=== PATIENT | male | born 1970 | race Asian ===

== ENCOUNTER 2024-08-13 21:48 | Inpatient (IN) | payer MEDICARE ==
[~2024-08-13] VITALS: Ht 165.1 cm; Wt 67.3 kg
[2024-08-13 22:23] LABS: BASOPHILS # (AUTO) 0.1 X10'3 (0-0.2); BASOPHILS % (AUTO) 0.8 % (0-1); EOSINOPHILS % (AUTO) 0.3 % (0-6); HEMOGLOBIN 15.7 g/dl (14.0-17.9); LYMPHOCYTES # (AUTO) 0.9 X10'3 (1.1-4.8); LYMPHOCYTES % (AUTO) 7.2 % (21-51); MEAN CORPUSCULAR HEMOGLOBIN 29.9 PG (27.0-31.0); MEAN CORPUSCULAR HGB CONC 33.4 g/dL (33.0-36.5); MEAN CORPUSCULAR VOLUME 89.4 FL (78-98); MEAN PLATELET VOLUME 9.5 FL (7.4-10.4); MONOCYTES # (AUTO) 0.8 X10'3 (0-0.9); MONOCYTES % (AUTO) 6.5 % (2-12); NEUTROPHILS # (AUTO) 10.9 X10'3 (1.8-7.7); NEUTROPHILS % (AUTO) 85.2 % (42-75); PLATELET COUNT 112 X10'3 (140-440); RED BLOOD COUNT 5.26 X10'6 (4.70-6.10); RED CELL DISTRIBUTION WIDTH 15.1 % (11.5-14.5); WHITE BLOOD COUNT 12.7 X10'3 (4.5-11.0)
[2024-08-13] MEDS ORDERED: ATOR-429 PO (22:33)
[2024-08-13] MEDS ORDERED: CLOP75TA34 PO (22:33)
[2024-08-13] MEDS ORDERED: FURO40TA4 PO (22:33)
[2024-08-13] MEDS ORDERED: METF-438 PO (22:33)
[2024-08-13] MEDS ORDERED: FENO145T38 PO (22:33)
[2024-08-13] MEDS ORDERED: ACET-3414 (22:33)
[2024-08-13] MEDS ORDERED: ASPI-1265 PO (22:33)
[2024-08-13] MEDS ORDERED: CARV6.252 PO (22:33)
[2024-08-13] MEDS ORDERED: POTA15TA18 PO (22:33)
[2024-08-13] MEDS ORDERED: ONDA-245 PO (22:33)
[2024-08-13] MEDS ORDERED: EMPA10TA PO (22:33)
[2024-08-13 22:40] LABS: ALANINE AMINOTRANSFERASE 30 U/L (12-78); ALBUMIN 3.2 G/DL (3.4-5.0); ALBUMIN/GLOBULIN RATIO 0.7 (1.1-1.5); ALKALINE PHOSPHATASE 198 IU/L (46-116); ANION GAP 7 (8-16); ASPARTATE AMINO TRANSFERASE 31 U/L (10-37); BILIRUBIN,TOTAL 1.7 MG/DL (0.1-1.0); BLOOD UREA NITROGEN 48 MG/DL (7-18); BUN/CREATININE RATIO 26.8 (10.0-20.0); CALCIUM 9.1 MG/DL (8.5-10.1); CHLORIDE 101 MMOL/L (99-107); CREATININE 1.79 MG/DL (0.60-1.10); GLUCOSE 167 MG/DL (70-104); SODIUM 137 MMOL/L (135-145); TOTAL CARBON DIOXIDE 29.2 MMOL/L (24-32); TOTAL PROTEIN 7.6 G/DL (6.4-8.2); eCRCL 40 ML/MIN; eGFR 39 ML/MIN
[2024-08-13 22:48] LABS: PRO BRAIN NATRIURETIC PEPTIDE 11731 PG/ML (0-125)
[2024-08-14] VITALS (8 sets, daily range): BP systolic 119–142; BP diastolic 70–97; PULSE 74–89; RESP 14–23; TEMP 97.5–98.1; O2SAT 96–99
[2024-08-14] MEDS: furosemide 40mg/4ml inj IV ONE (00:18)
[2024-08-14] MEDS ORDERED: potassium Cl 20 mEq SR tablet PO PRN (00:35)
[2024-08-14] MEDS ORDERED: magnesium hydroxide 30ml (MOM) UD suspension PO PRN (00:35)
[2024-08-14] MEDS ORDERED: potassium Cl 40MEQ/1/2NS 520ml 520 ML IV PRN (00:35)
[2024-08-14] MEDS ORDERED: magnesium sulf-water 2g/50mL 50 ML IV PRN (00:35)
[2024-08-14] MEDS ORDERED: magnesium Cl slow-release 64mg tablet PO PRN (00:35)
[2024-08-14] MEDS ORDERED: acetaminophen 325mg tablet PO PRN (00:35)
[2024-08-14] MEDS ORDERED: mag hydrox/Alum hydrox/simeth 30ml oral suspension PO PRN (00:35)
[2024-08-14] MEDS ORDERED: magnesium sulf-water 4G/100mL 100 ML IV PRN (00:35)
[2024-08-14] MEDS ORDERED: ondansetron/PF 4mg/2ml inj IV PRN (00:35)
[2024-08-14 01:32] LABS: MAGNESIUM 2.1 MG/DL (1.5-2.4); POTASSIUM 4.3 MMOL/L (3.5-5.1)
[2024-08-14 01:40] LABS: HEMOGLOBIN A1C 9.9 % (4.5-6.2)
[2024-08-14] MEDS ORDERED: dextrose 50%-water 50ml dispensing syringe IV PRN ×2 (02:10)
[2024-08-14] MEDS ORDERED: glucagon, human recombinant 1mg kit SUBCUT PRN (02:10)
[2024-08-14] MEDS ORDERED: DEXTROSE 15 GM of carb/4 tabs (each vial/BOTTLE has 4 tablets) PO PRN ×2 (02:10)
[2024-08-14] MEDS: Melatonin 3mg tablet PO ONE (04:36)
[2024-08-14] MEDS: INSULIN LISPRO 100 UNIT/ML INSULN.PEN MULTI-DOSE SQ SCH ×2 (07:00→09:25)
[2024-08-14] MEDS: K and/or MAG REPLACEMENT MC SCH (08:00)
[2024-08-14] MEDS: heparin, porcine 5000 units/ml vial SQ SCH (08:00)
[2024-08-14] MEDS: furosemide 10 MG/1 ML 10ml inj IV SCH (09:09)
[2024-08-14] MEDS: carvedilol 6.25mg tablet PO SCH (09:19)
[2024-08-14] MEDS: clopidogrel 75mg tablet PO SCH (09:19)
[2024-08-14] MEDS: fenofibrate 145mg tablet PO SCH (09:19)
[2024-08-14] MEDS: aspirin 81mg tab.chew PO SCH (09:19)
[2024-08-14] MEDS: docusate sod 100mg capsule PO SCH (09:20)
[2024-08-14] MEDS: EMPAGLIFLOZIN 10 MG TABLET PO SCH (09:20)
[2024-08-14] MEDS: benzonatate 100mg capsule PO PRN (11:27)
[2024-08-14] MEDS: atorvastatin 20mg tablet PO SCH (21:39)
[2024-08-14] MEDS: sacubitril/valsartan 24mg-26mg tablet PO SCH (21:40)
[2024-08-14] MEDS: Melatonin 3mg tablet PO SCH (21:40)
[2024-08-14] MEDS: insulin glargine (Lantus) pen - multi-dose SQ SCH (21:54)
[2024-08-15 02:00] VITALS: BP 113/71; PULSE 82; RESP 18; TEMP 97.5; O2SAT 93
[2024-08-15 06:00] VITALS: BP 118/66; PULSE 79; RESP 14; TEMP 97.5; O2SAT 92
[2024-08-15 07:26] LABS: BASOPHILS % (AUTO) 0.3 % (0-1); EOSINOPHILS # (AUTO) 0.1 X10'3 (0-0.9); EOSINOPHILS % (AUTO) 0.4 % (0-6); HEMATOCRIT 46.6 % (42.0-52.0); HEMOGLOBIN 15.5 g/dl (14.0-17.9); LYMPHOCYTES # (AUTO) 1.2 X10'3 (1.1-4.8); LYMPHOCYTES % (AUTO) 8.8 % (21-51); MEAN CORPUSCULAR HEMOGLOBIN 29.5 PG (27.0-31.0); MEAN CORPUSCULAR HGB CONC 33.2 g/dL (33.0-36.5); MEAN CORPUSCULAR VOLUME 88.8 FL (78-98); MEAN PLATELET VOLUME 9.7 FL (7.4-10.4); MONOCYTES # (AUTO) 1.1 X10'3 (0-0.9); MONOCYTES % (AUTO) 8.2 % (2-12); NEUTROPHILS # (AUTO) 10.9 X10'3 (1.8-7.7); NEUTROPHILS % (AUTO) 82.3 % (42-75); PLATELET COUNT 131 X10'3 (140-440); RED BLOOD COUNT 5.25 X10'6 (4.70-6.10); RED CELL DISTRIBUTION WIDTH 15.1 % (11.5-14.5); WHITE BLOOD COUNT 13.2 X10'3 (4.5-11.0)
[2024-08-15 07:37] LABS: ALANINE AMINOTRANSFERASE 22 U/L (12-78); ALBUMIN 2.8 G/DL (3.4-5.0); ALBUMIN/GLOBULIN RATIO 0.6 (1.1-1.5); ALKALINE PHOSPHATASE 188 IU/L (46-116); ANION GAP 9 (8-16); ASPARTATE AMINO TRANSFERASE 26 U/L (10-37); BILIRUBIN,TOTAL 1.7 MG/DL (0.1-1.0); BLOOD UREA NITROGEN 37 MG/DL (7-18); BUN/CREATININE RATIO 28.9 (10.0-20.0); CHLORIDE 98 MMOL/L (99-107); CHOL/HDL RATIO 2.3 (0.00-4.99); CHOLESTEROL 101 MG/DL (0-200); CREATININE 1.28 MG/DL (0.60-1.10); GLUCOSE 101 MG/DL (70-104); HDL CHOLESTEROL 43 MG/DL (35-60); LDL CHOLESTEROL 53 MG/DL (50-100); MAGNESIUM 1.7 MG/DL (1.5-2.4); POTASSIUM 3.4 MMOL/L (3.5-5.1); SODIUM 137 MMOL/L (135-145); TOTAL CARBON DIOXIDE 30.5 MMOL/L (24-32); TOTAL PROTEIN 7.3 G/DL (6.4-8.2); TRIGLYCERIDES 42 MG/DL (20-135); eCRCL 56 ML/MIN; eGFR 58 ML/MIN
[2024-08-15] MEDS: potassium Cl 20 mEq SR tablet PO PRN (09:13)
[2024-08-15 11:00] VITALS: BP 136/84; PULSE 86; RESP 16; TEMP 97.2; O2SAT 96
[2024-08-15] MEDS: guaiFENesin/DM 10ml UD oral syrup PO SCH (11:15)
[2024-08-15] MEDS: fluticasone nasal spray 16GM bottle NS SCH (11:20)
[2024-08-15] MEDS: magnesium oxide 400mg tablet PO SCH (11:40)
[2024-08-15] MEDS: benzonatate 100mg capsule PO SCH (13:18)
[2024-08-15] MEDS: SINCALIDE IV ONE (15:19)
[2024-08-15] MEDS: NORMAL SALINE IV ONE (15:19)
[2024-08-15 18:00] VITALS: BP 124/77; PULSE 80; RESP 16; TEMP 97.2; O2SAT 98
[2024-08-15 20:00] VITALS: RESP 16; O2SAT 98
[2024-08-15] MEDS: furosemide 10 MG/1 ML 10ml inj IV SCH (20:19)
[2024-08-15 22:00] VITALS: BP 98/56; PULSE 87; RESP 14; TEMP 97.6; O2SAT 95
[2024-08-16 02:00] VITALS: BP 92/61; PULSE 83; RESP 20; TEMP 97.2; O2SAT 98
[2024-08-16 06:00] VITALS: BP 128/63; PULSE 68; RESP 14; TEMP 98.3; O2SAT 100
[2024-08-16 07:04] LABS: BASOPHILS % (AUTO) 0.3 % (0-1); EOSINOPHILS # (AUTO) 0.1 X10'3 (0-0.9); EOSINOPHILS % (AUTO) 0.6 % (0-6); HEMATOCRIT 46.8 % (42.0-52.0); HEMOGLOBIN 15.8 g/dl (14.0-17.9); LYMPHOCYTES # (AUTO) 1.1 X10'3 (1.1-4.8); LYMPHOCYTES % (AUTO) 7.9 % (21-51); MEAN CORPUSCULAR HEMOGLOBIN 30.1 PG (27.0-31.0); MEAN CORPUSCULAR HGB CONC 33.8 g/dL (33.0-36.5); MEAN CORPUSCULAR VOLUME 89.3 FL (78-98); MONOCYTES # (AUTO) 1.2 X10'3 (0-0.9); MONOCYTES % (AUTO) 8.9 % (2-12); NEUTROPHILS # (AUTO) 11.1 X10'3 (1.8-7.7); NEUTROPHILS % (AUTO) 82.3 % (42-75); PLATELET COUNT 134 X10'3 (140-440); RED BLOOD COUNT 5.24 X10'6 (4.70-6.10); RED CELL DISTRIBUTION WIDTH 14.8 % (11.5-14.5); WHITE BLOOD COUNT 13.5 X10'3 (4.5-11.0)
[2024-08-16 07:22] LABS: ALANINE AMINOTRANSFERASE 21 U/L (12-78); ALBUMIN 2.6 G/DL (3.4-5.0); ALBUMIN/GLOBULIN RATIO 0.6 (1.1-1.5); ALKALINE PHOSPHATASE 230 IU/L (46-116); ANION GAP 8 (8-16); ASPARTATE AMINO TRANSFERASE 23 U/L (10-37); BILIRUBIN,TOTAL 1.2 MG/DL (0.1-1.0); BLOOD UREA NITROGEN 44 MG/DL (7-18); BUN/CREATININE RATIO 28.2 (10.0-20.0); CALCIUM 8.9 MG/DL (8.5-10.1); CHLORIDE 95 MMOL/L (99-107); CREATININE 1.56 MG/DL (0.60-1.10); MAGNESIUM 1.7 MG/DL (1.5-2.4); POTASSIUM 3.9 MMOL/L (3.5-5.1); SODIUM 133 MMOL/L (135-145); TOTAL PROTEIN 7.1 G/DL (6.4-8.2); eCRCL 46 ML/MIN; eGFR 46 ML/MIN
[2024-08-16] MEDS: spironolactone 25 MG tablet PO SCH (07:35)
[2024-08-16 07:59] LABS: GLUCOSE 411 MG/DL (70-104)
[2024-08-16 08:00] VITALS: RESP 14; O2SAT 100
[2024-08-16] MEDS ORDERED: ROBDML PO (10:52)
[2024-08-16] MEDS ORDERED: SACU1TAB PO (10:52)
[2024-08-16] MEDS ORDERED: FURO-150 PO (10:52)
[2024-08-16] MEDS ORDERED: BENZ-111 PO (10:52)
[2024-08-16 11:07] VITALS: BP 112/62; PULSE 69; RESP 15; TEMP 97.8; O2SAT 98
== END 2024-08-16 12:05 | disposition home or self-care (01) | DRG 682 ==
LOC: EDSEX 21:51 → ER 21:51 → ED HOLD 08-14 00:39 → PCU 3S 08-14 01:33
PROVIDERS: ADMIT Surgery Surgical Critical Care; ATTEND Internal Medicine
PROC: CF141ZZ Planar Nuclear Medicine Imaging of Gallbladder using Technetium 99m (Tc-99m) (ICD-10-PCS; principal; 2024-08-15)
DX: N17.0 Acute kidney failure with tubular necrosis (principal); I50.23 Acute on chronic systolic (congestive) heart failure; I11.0 Hypertensive heart disease with heart failure; E78.5 Hyperlipidemia, unspecified; E11.9 Type 2 diabetes mellitus without complications; K80.50 Calculus of bile duct without cholangitis or cholecystitis without obstruction; I25.5 Ischemic cardiomyopathy; Z79.82 Long term (current) use of aspirin; Z79.899 Other long term (current) drug therapy; Z79.84 Long term (current) use of oral hypoglycemic drugs
CPT/HCPCS: 36415; 71045; 76700; 78227; 80053; 80061; 82948; 83036; 83735; 83880; 84132; 84145; 84484; 85025; 87070; 87081; 93005; 93306; 99285; A9537; G0378; J1644; J1815; J1940; J2805